=== PATIENT | male | born 1970 | race Caucasian/White ===

== ENCOUNTER 2016-06-25 18:45 | Emergency (ER) | payer OTHER ==
[~2016-06-25] VITALS: Ht 185.4 cm; Wt 88.5 kg
--- NOTE | 2016-06-25 21:33 | ED NECK/BACK PAIN COMPLAINT ---
History of Present Illness General Chief Complaint: Lower Extremity Problems Stated Complaint: PT IS HAVING SCIATICA PAIN Source: patient Exam Limitations: no limitations Vital Signs & Intake/Output Vital Signs & Intake/Output Vital Signs Date Time Temp Pulse Resp B/P Pulse O2 O2 Flow FiO2 Ox Delivery Rate 06/25 2156 97.9 96 18 140/94 97 Room Air 06/25 1911 98.5 105 18 154/84 96 Room Air Allergies Coded Allergies: No Known Allergies (06/25/16) Reconcile Medications Meloxicam (Mobic) 15 MG TABLET 1 TAB PO DAILY pain Oxycodone HCl/Acetaminophen (Percocet 5-325 MG Tablet) 5 MG-325 MG TABLET 1-2 TAB PO Q6P PRN pain Triage Note: 45 YO MALE TO ER C/O SCIATIC PAIN. STATES YEARS AGO HE HAD THIS PAIN BUT HE HAS BEEN OK. C/O PAIN TO L LOWER BACK RADIATING DOWN L LEG. DENIES INJURY. Triage Nurses Notes Reviewed? yes Onset: Abrupt Duration: day(s):, constant, continues in ED Timing: recent history Quality/Severity: moderate, severe HPI: 45-year-old male comes into emergency room with complaints of left-sided lower proximal pain that radiates down his left leg. Patient has a history of sciatica and reports that the pain feels similar. Pain is sharp. Continuous. Denies any urinary bowel dysfunction. Nothing has seemed to make the symptoms better or worse. Denies any other associated symptoms. Denies any recent falls or trauma. Symptoms have been going on for the past week getting progressively worse. Past History Travel History Traveled to [place] past 21 day No Medical History Any Pertinent Medical History? 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 No Review of Systems Review of Systems Constitutional: Reports: no symptoms. Eyes: Reports: no symptoms. Ears, Nose, Throat, Mouth: Reports: no symptoms. Respiratory: Reports: no symptoms. Cardiovascular: Reports: no symptoms. Gastrointestinal/Abdominal: Reports: no symptoms. Musculoskeletal: Reports: see HPI. Skin: Reports: no symptoms. Neurological/Psychological: Reports: no symptoms. All Other Systems: Reviewed and Negative Physical Exam Physical Exam General Appearance: well developed/nourished, mild distress Head: atraumatic Eyes: Bilateral: normal appearance. Ears, Nose, Throat, Mouth: hearing grossly normal, moist mucous membrane Neck: normal inspection, full range of motion Respiratory: no respiratory distress Back: normal inspection Extremities: normal range of motion Motor: Deficit L4 Right: No Deficit L4 Left: No Deficit L5 Right: No Deficit L5 Left: No Deficit S1 Right: No Deficit S1 Right: No Neurologic/Psych: awake, alert, oriented x 3, normal mood/affect Skin: intact, normal color, warm/dry Comments: 5 out of 5 strength in the lower extremity, normal dorsiflexion of great toe bilaterally, gross sensation is intact Progress Differential Diagnosis: cauda equina syn, herniated disc, myofascial strain, sciatica, spinal cord inj, thoracic outlet syn, T/L spine injury, ureterolithiasis Plan of Care: Current Medications Sig/Juan Start time Last Medication Dose Stop Time Status Admin Ketorolac 60 MG ONCE ONE 06/25 2144 UNVr Tromethamine 06/25 2145 (Toradol) Departure Departure Disposition: HOME OR SELF CARE Condition: Stable Clinical Impression Primary Impression: Sciatica Referrals: JOANN CUMMINGS,ABIGAIL Ramirez (PCP/Family) Additional Instructions: Take Percocet and Motrin as prescribed. Follow-up with your primary care doctor if not better in 3-5 days. Resume taking the prednisone and cyclobenzaprine that was prescribed. Please go over all results of today's visit with your primary care doctor. Contact your primary care doctor to let them know you were here in the emergency room. There may be nonspecific findings which may not be related to your visit today here in the emergency room but may require further evaluation and chronic monitoring by your primary care doctor. If you had a laceration today the chance of foreign body always remains. You should follow-up with your primary care doctor for recheck in 3-5 days for a wound check. If you had an x-ray done there is a chance that a fracture could have been missed on initial read and you should follow-up with your primary care doctor for repeat x-rays if symptoms persist. If your blood pressure was elevated here in the emergency room please have rechecked by her primary care doctor within the next 48 hours by your primary care doctor. If you were prescribed a narcotic here in the emergency room or any type of controlled substances you're not allowed to drive while taking this medication or operate any type of heavy machinery. Narcotics can make you feel lightheaded dizziness nausea and can cause constipation. 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 Thank you for choosing [facility] emergency room. Please return to the emergency room immediately if you have any other concerns worsening of symptoms. Departure Forms: Customer Survey General Discharge Information Prescriptions: Current Visit Scripts Oxycodone HCl/Acetaminophen (Percocet 5-325 MG Tablet) 1-2 TAB PO Q6P PRN pain #20 TAB Meloxicam (Mobic) 1 TAB PO DAILY #20 TAB
[2016-06-25] MEDS ORDERED: MOBIC15 M1 PO (21:44)
[2016-06-25] MEDS ORDERED: PERCOCET 5-3251 EACH PO (21:44)
[2016-06-25 21:57] VITALS: BP 140/94
== END 2016-06-25 22:00 ==
LOC: ERH 18:45
DX: M54.32 Sciatica, left side (principal)
CPT/HCPCS: 96372; J1885